=== PATIENT | female | born 2000 | race Two or more races ===

== ENCOUNTER 2022-11-24 20:32 | Emergency (ER) | payer OTHER ==
[~2022-11-24] VITALS: Ht 160 cm; Wt 47.6 kg
[~2022-11-24 20:32] MED LIST: KEFLEX500 MG PO; MUPIROCIN1 G1 TP; ZANTAC15 MG/ML
[2022-11-24] MEDS ORDERED: AMOXICILLIN500 MG PO (20:46)
== END 2022-11-24 21:10 | disposition home or self-care (01) ==
LOC: ER 20:32 → EMR PED 20:35
DX: J02.9 Acute pharyngitis, unspecified (principal)

== ENCOUNTER 2023-09-05 11:47 | Emergency (ER) | payer OTHER ==
[~2023-09-05] VITALS: Ht 152.4 cm; Wt 54.4 kg
[~2023-09-05 11:47] MED LIST changes: +AMOXICILLIN500 MG PO
[2023-09-05 14:23] LABS: HEMATOCRIT 41.9 % (36.0-45.00); HEMOGLOBIN 14.3 g/dL (12.0-15.00); MEAN CELL VOLUME 82.2 fL (80.00-100.00); PLATELET COUNT 269 K/uL (150-450); RED CELL DISTRIBUTION WIDTH 12.5 % (11.5-14.5)
[2023-09-05 14:26] LABS: PH,URINE 5.5 (5.0-8.0); URINE APPEARANCE Clear; URINE BILIRRUBIN Negative (NEGATIVE); URINE BLOOD Negative; URINE COLOR Yellow; URINE GLUCOSE Negative (NEGATIVE); URINE LEUKOCYTE Negative; URINE NITRATE Negative; URINE PROTEIN Negative (NEGATIVE); URINE UROBILINOGEN 0.2 E.U./dl
[2023-09-05 14:30] LABS: URINE BACTERIA 31.4 uL (0.0-1933); URINE EPITHELIAL CELLS 4.6 uL (0.0-38.8); URINE RBC 5.3 uL (0.0-20.8); URINE WBC 4.4 uL (0.0-23.2)
[2023-09-05 14:47] LABS: ALBUMIN 4.4 gm/dL (3.4-5.0); BILIRUBIN TOTAL 0.38 mg/dL (0.3-1.2); CALCIUM 10.2 mg/dL (8.5-10.1); CREATININE SERUM 0.83 mg/dL (0.55-1.02); GFR 87.64; GLOBULINA 5.2 G/DL (2.4-3.5); POTASSIUM 3.58 mEq/L (3.5-5.1); TOTAL PROTEIN 9.6 gm/dL (6.4-8.2)
== END 2023-09-05 16:27 | disposition home or self-care (01) ==
LOC: ER 11:48 → EMR PED 11:54
PROVIDERS: Emergency Medicine Pediatric Emergency Medicine
DX: N92.6 Irregular menstruation, unspecified (principal)